=== PATIENT | female | born 2000 | race Caucasian/White ===

== ENCOUNTER → 2024-10-09 | Outpatient (CLI) | payer BC ==
[2024-10-09 10:13] LABS: Basophils # (A) 0.05 10*3/uL (0.00-0.10); Eosinophils # (A) 0.19 10*3/uL (0.04-0.35); Eosinophils % (A) 3.9 %; HCT 37.9 % (37.2-46.3); HGB 12.9 g/dL (12.0-15.0); Lymphocytes # (A) 1.73 10*3/uL (0.90-5.00); Lymphocytes % (A) 35.2 %; MCH 30.2 pg (27.0-32.0); MCV 88.8 fL (80.0-97.0); Mean Platelet Volume 8.9 fL (9.5-12.2); Monocytes # (A) 0.42 10*3/uL (0.20-1.00); Monocytes % (A) 8.5 %; Neutrophils # (A) 2.52 10*3/uL (1.80-7.70); Neutrophils % (A) 51.2 %; Platelet Count 285 10*3/uL (140-440); RBC 4.27 10*6/uL (4.10-5.20); RDW 12.3 % (11.5-14.5); WBC 4.92 10*3/uL (4.50-10.00)
[2024-10-09 10:26] LABS: INR 1.1 (<1.2); Partial Thromboplastin Time 27.8 sec (22.0-30.0); Prothrombin Time 11.7 sec (10.0-12.5)
[2024-10-09 10:52] LABS: RBC Morphology Normal
[2024-10-10 12:02] LABS: Protein C (Activity) 79.1 % (71.0-138.0)
== END | disposition home or self-care (01) ==
LOC: LABWHC1 09:45
PROVIDERS: ATTEND Internal Medicine
DX: D68.2 Hereditary deficiency of other clotting factors (principal)
CPT/HCPCS: 36415; 85025; 85303; 85306; 85610; 85730

== ENCOUNTER → 2024-10-23 | Outpatient (CLI) | payer BC ==
[2024-10-23 12:56] LABS: Basophils # (A) 0.05 10*3/uL (0.00-0.10); Basophils % (A) 1.1 %; Eosinophils % (A) 4.3 %; HCT 39.5 % (37.2-46.3); HGB 13.1 g/dL (12.0-15.0); Lymphocytes # (A) 1.72 10*3/uL (0.90-5.00); Lymphocytes % (A) 36.8 %; MCH 30.3 pg (27.0-32.0); MCHC 33.2 g/dL (32.0-37.0); MCV 91.2 fL (80.0-97.0); Mean Platelet Volume 8.7 fL (9.5-12.2); Monocytes # (A) 0.48 10*3/uL (0.20-1.00); Monocytes % (A) 10.3 %; Neutrophils # (A) 2.22 10*3/uL (1.80-7.70); Neutrophils % (A) 47.3 %; Platelet Count 296 10*3/uL (140-440); RBC 4.33 10*6/uL (4.10-5.20); RDW 12.3 % (11.5-14.5); WBC 4.68 10*3/uL (4.50-10.00)
[2024-10-23 13:05] LABS: Partial Thromboplastin Time 26.9 sec (22.0-30.0); Prothrombin Time 11.4 sec (10.0-12.5)
[2024-10-23 13:51] LABS: RBC Morphology Normal
[2024-10-24 10:22] LABS: Protein C (Activity) 95.1 % (71.0-138.0)
== END | disposition home or self-care (01) ==
LOC: LABWHC1 11:35
PROVIDERS: ATTEND Internal Medicine
DX: D68.2 Hereditary deficiency of other clotting factors (principal)
CPT/HCPCS: 36415; 81241; 85025; 85303; 85306; 85610; 85730